=== PATIENT | female | born 1975 | race Caucasian/White ===

== ENCOUNTER 2018-02-10 20:10 | Emergency (ER) | payer OTHER ==
[2018-02-10 20:36] VITALS: BP 109/67
--- NOTE | 2018-02-10 21:32 | EDM.PDOC ---
ED HPI GENERAL MEDICAL PROBLEM - General Chief Complaint: Back Pain or Injury Stated Complaint: SHOULDER PAIN Time Seen by Provider: 02/10/18 21:14 Source of Information: Reports: Patient History Limitations: Reports: No Limitations - History of Present Illness INITIAL COMMENTS - FREE TEXT/NARRATIVE: The patient states that she developed nausea and emesis around 01:00 this morning. She has had chills without fever all day, and body aches today. She states that she was seen at the walk-in clinic earlier this afternoon. No chest were done, but she was diagnosed with a "stomach flu" and prescribe Zofran. She states that she took half a tablet of Zofran around 14:00 this afternoon, which helped with her nausea, but then she developed a stabbing pain felt between her scapulae around that time. No chest pain, and no shortness of breath. The pain was not modifiable. The pain comes and goes, lasting about 2 minutes, occurring about every 20 minutes. She is not feeling the pain at this time; the last time she felt it was just prior to arriving to the ED. The patient states that she has had similar back pain countless times ever since she was a child, whenever she gets sick. She states that she has not previously undergone a medical evaluation for it, specifically. The patient's PCP is Regi Hanson. Back Pain Score (Numeric/FACES): 5 - Related Data Allergies Allergy/AdvReac Type Severity Reaction Status Date / Time prochlorperazine Allergy Other Verified 02/10/18 20:31 [From Compazine] prochlorperazine edisylate Allergy Other Verified 02/10/18 20:31 [From Compazine] prochlorperazine maleate Allergy Other Verified 02/10/18 20:31 [From Compazine] Sulfa (Sulfonamide Allergy Rash Verified 02/10/18 20:31 Antibiotics) Home Meds: Home Meds buPROPion [Wellbutrin SR] 150 mg PO DAILY 02/06/16 [History] Sertraline [Zoloft] 12.5 mg PO DAILY 02/10/18 [History] Orphenadrine [Norflex] 1 tab PO Q12H PRN #14 tab.er 02/11/18 [Rx] Past Medical History HEENT History: Reports: Impaired Vision Gastrointestinal History: Reports: Gastritis 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: Psychiatric History: Reports: Anxiety, Depression - Past Surgical History HEENT Surgical History: Reports: Oral Surgery ([place] teeth extraction) GI Surgical History: Reports: Colonoscopy, EGD Female Surgical History: Reports: D&C (x 1) Social & Family History - Family History Family Medical History: Noncontributory Oncologic: Reports: Breast - Tobacco Use Smoking Status *Q: Former Smoker Month/Year Tobacco Last Used: Quit 1997 - Caffeine Use Caffeine Use: Reports: Coffee - Alcohol Use Alcohol Use History: No - Recreational Drug Use Recreational Drug Use: No - Living Situation & Occupation Living situation: Reports: , with Family (Daughter) 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 ED EXAM, UPPER BACK/NECK PAIN - Physical Exam Exam: See Below Exam Limited By: No Limitations General Appearance: Alert, WD/WN, No Apparent Distress Eye Exam: Bilateral Eye: Normal Inspection Ears Exam: Normal External Exam, Hearing Grossly Normal Nose Exam: Normal Inspection, No Blood Throat/Mouth Exam: Normal Inspection, Normal Lips, Normal Voice, No Airway Compromise Head Exam: Atraumatic, Normocephalic Neck Exam: Non-Tender, Full Range of Motion, Normal Alignment, Normal Inspection Cardiovascular/Respiratory: Regular Rate, Rhythm, No M/R/G, Normal Peripheral Pulses, No JVD, Normal Breath Sounds, No Respiratory Distress GI/Abdominal: Normal Bowel Sounds, Soft, Non-Tender, No Organomegaly, No Distention, No Abnormal Bruit, No Mass (Female) Exam: Deferred Rectal (Female) Exam: Deferred Back Exam: Normal Inspection, Full Range of Motion, NT Extremities: Normal Inspection, Normal Range of Motion, No Pedal Edema, Normal Capillary Refill Neurologic: No Motor/Sensory Deficits, Alert, Oriented x 3 Psychiatric: Normal Affect Skin Exam: Normal Color, Warm/Dry Course - Vital Signs Last Recorded V/S: Last Vital Signs Temp 36.8 C 02/10/18 20:34 Pulse 97 02/10/18 20:34 Resp 16 02/10/18 20:34 BP 109/67 02/10/18 20:34 Pulse Ox 98 02/10/18 20:34 - Orders/Labs/Meds Orders: Active Orders 24 hr Category Date Time Status Chest 2V [CR] Stat Exams 02/10/18 21:26 Taken Labs: Laboratory Tests 02/10/18 02/10/18 02/10/18 Range/Units 21:39 21:39 21:39 WBC 6.70 (3.98-10.04) K/mm3 RBC 4.05 (3.98-5.22) M/mm3 Hgb 12.8 (11.2-15.7) gm/L Hct 37.7 (34.1-44.9) % MCV 93.1 (79.4-94.8) fl MCH 31.6 (25.6-32.2) pg MCHC 34.0 (32.2-35.5) g/dl RDW Std Deviation 42.5 (36.4-46.3) fL Plt Count 217 (182-369) K/mm3 MPV 9.9 (9.4-12.3) fl Neutrophils % (Manual) 81 H (40-60) % Band Neutrophils % 0 (0-10) % Lymphocytes % (Manual) 16 L (20-40) % Atypical Lymphs % 0 % Monocytes % (Manual) 3 (2-10) % Eosinophils % (Manual) 0 L (0.7-5.8) % Basophils % (Manual) 0 L (0.1-1.2) Platelet Estimate Adequate RBC Morph Comment Normal PT 12.0 (8.0-13.0) SECONDS INR 1.12 APTT (22-36) SECONDS D-Dimer, Quantitative 0.35 (0.19-0.59) mg/L Sodium 134 L (136-145) mEq/L Potassium 3.3 L (3.5-5.1) mEq/L Chloride 99 (98-107) mEq/L Carbon Dioxide 26 (21-32) mEq/L Anion Gap 12.3 (5-15) BUN 9 (7-18) mg/dL Creatinine 0.8 (0.55-1.02) mg/dL Est Cr Clr Drug Dosing 75.78 mL/min Estimated GFR (MDRD) > 60 (>60) mL/min BUN/Creatinine Ratio 11.3 L (14-18) Glucose 146 H (74-106) mg/dL Calcium 8.1 L (8.5-10.1) mg/dL Total Bilirubin 0.3 (0.2-1.0) mg/dL AST 20 (15-37) U/L ALT 37 (14-59) U/L Alkaline Phosphatase 41 L (46-116) U/L Troponin I < 0.017 (0.00-0.056) ng/mL Total Protein 6.5 (6.4-8.2) g/dl Albumin 3.6 (3.4-5.0) g/dl Globulin 2.9 gm/dL Albumin/Globulin Ratio 1.2 (1-2) 02/10/18 Range/Units 21:39 WBC (3.98-10.04) K/mm3 RBC (3.98-5.22) M/mm3 Hgb (11.2-15.7) gm/L Hct (34.1-44.9) % MCV (79.4-94.8) fl MCH (25.6-32.2) pg MCHC (32.2-35.5) g/dl RDW Std Deviation (36.4-46.3) fL Plt Count (182-369) K/mm3 MPV (9.4-12.3) fl Neutrophils % (Manual) (40-60) % Band Neutrophils % (0-10) % Lymphocytes % (Manual) (20-40) % Atypical Lymphs % % Monocytes % (Manual) (2-10) % Eosinophils % (Manual) (0.7-5.8) % Basophils % (Manual) (0.1-1.2) Platelet Estimate RBC Morph Comment PT (8.0-13.0) SECONDS INR APTT 30 (22-36) SECONDS D-Dimer, Quantitative (0.19-0.59) mg/L Sodium (136-145) mEq/L Potassium (3.5-5.1) mEq/L Chloride (98-107) mEq/L Carbon Dioxide (21-32) mEq/L Anion Gap (5-15) BUN (7-18) mg/dL Creatinine (0.55-1.02) mg/dL Est Cr Clr Drug Dosing mL/min Estimated GFR (MDRD) (>60) mL/min BUN/Creatinine Ratio (14-18) Glucose (74-106) mg/dL Calcium (8.5-10.1) mg/dL Total Bilirubin (0.2-1.0) mg/dL AST (15-37) U/L ALT (14-59) U/L Alkaline Phosphatase (46-116) U/L Troponin I (0.00-0.056) ng/mL Total Protein (6.4-8.2) g/dl Albumin (3.4-5.0) g/dl Globulin gm/dL Albumin/Globulin Ratio (1-2) Meds: Medications Discontinued Medications Generic Name Dose Route Start Last Admin Trade Name Freq PRN Reason Stop Dose Admin Orphenadrine Citrate 100 mg 02/11/18 00:09 02/11/18 00:26 Norflex PO 02/11/18 00:10 100 mg ONETIME STA Administration - Re-Assessments/Exams Free Text/Narrative Re-Assessment/Exam: 02/10/18 22:22 Two-view chest radiograph appears to be grossly normal. Cardiac silhouette is within normal limits. No pulmonary vascular congestion. No pleural effusions. No focal infiltrate. No pneumothorax. Formal read per the Radiologist pending. 02/11/18 00:10 Test results discussed with the patient. Today's workup, with the exception of mild hypokalemia, is unremarkable. Causes of scapular pain, including a pulmonary embolus, LA, or infiltrate have been ruled out. Clinically, her symptoms are not consistent with a dissection, therefore this was not pursued, although with a dissection, one would expect an elevated D-dimer, which was not the case here. Clinically, I suspect that the patient is suffering from a muscle spasm, possibly related to anxiety. To that end, we'll start the patient on Norflex. Departure - Departure Time of Disposition: 00:11 Disposition: Home, Self-Care 01 Condition: Good Clinical Impression: Muscle spasm of back - Discharge Information Prescriptions: Orphenadrine [Norflex] 1 tab PO Q12H PRN #14 tab.er PRN Reason: Muscle Spasm Instructions: Muscle Cramps and Spasms, [id number] Referrals: Regi Hanson COUNTER CUTTER [Primary Care Provider] - Forms: ED Department Discharge Additional Instructions: You were seen in the emergency room for stabbing pain between your shoulder blades, on and off since this afternoon. Workup in the ER included blood work and a chest x-ray. Your entire workup was unremarkable. You do not have a blood clot in your lungs. You do not have a collapsed lung. You do not have pneumonia. You have not had a heart attack. Based on your history and physical examination, your pain is MOST LIKELY due to a muscle spasm. You have been started on the muscle relaxant Norflex. A prescription for this has been sent to the [facility]. Take one tablet every 12 hours, as prescribed. Your potassium was found to be slightly low. We recommend that you increase potassium in your diet with such foods as tomatoes, squash, sweet potatoes, potato skins, yogurt, and bananas. We recommend that you notify the office of your PCP, Regi Hanson, of your ER visit and Norflex prescription. If any other problems, please do not hesitate to return to the ER. - My Orders Last 24 Hours: My Active Orders 02/10/18 21:26 Chest 2V [CR] Stat - Assessment/Plan Last 24 Hours: My Active Orders 02/10/18 21:26 Chest 2V [CR] Stat
[2018-02-11] MEDS ORDERED: Orphenadrine 100 MG Tab.ER PO STA (00:09)
--- NOTE | 2018-02-11 09:32 | CR ---
Chest: Two views of the chest were obtained. Comparison: No prior chest x-ray. Heart size and mediastinum are normal. Lungs are clear. Bony structures are unremarkable. Impression: 1. Nothing acute is identified on two-view chest x-ray. Diagnostic code #1
== END 2018-02-11 00:27 | disposition home or self-care (01) ==
LOC: JD.ED 20:10
DX: M62.830 Muscle spasm of back (principal); Z88.8 Allergy status to other drugs, medicaments and biological substances; Z88.2 Allergy status to sulfonamides; Z79.899 Other long term (current) drug therapy; Z87.891 Personal history of nicotine dependence
CPT/HCPCS: 36415; 71046; 80053; 84484; 85025; 85379; 85610; 85730; 99284; A9270; 99283

== ENCOUNTER 2018-11-29 18:38 | Emergency (ER) | payer OTHER ==
[2018-11-29 18:57] VITALS: BP 123/68
--- NOTE | 2018-11-29 20:37 | EDM.PDOC ---
ED HPI GENERAL MEDICAL PROBLEM - General Chief Complaint: GLAZIER STRUCTURAL GLASS Problem Stated Complaint: IUD MAY HAVE MOVED/VAG BLEEDING Time Seen by Provider: 11/29/18 19:20 Source of Information: Reports: Patient History Limitations: Reports: No Limitations - History of Present Illness INITIAL COMMENTS - FREE TEXT/NARRATIVE: 43-year-old female presents for concerns over a dislodged IUD. Patient was seen by Dr. Solano on Sunday where she had what she describes as a skin tag removed from her cervix. 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 She reports since Sunday she's had worsening pelvic cramping and vaginal bleeding. She describes the pelvic cramping and bleeding as if she is on her menstrual cycle. Last menstrual cycle was November 08. She denies any fevers, chills, nausea or vomiting. She does have a Mirena IUD in place and checked the strings. She states she's not normally able to feel the strings; she was able to feel them today and feels that she can actually feel the IUD vagina. 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, Other Medication(s) Other Treatments SUPERVISOR COMPONENT ASSEMBLER: midol Lower Abdomen Pain Score (Numeric/FACES): 3 - Related Data Allergies Allergy/AdvReac Type Severity Reaction Status Date / Time prochlorperazine Allergy Other Verified 11/29/18 18:57 [From Compazine] prochlorperazine edisylate Allergy Other Verified 11/29/18 18:57 [From Compazine] prochlorperazine maleate Allergy Other Verified 11/29/18 18:57 [From Compazine] Sulfa (Sulfonamide Allergy Rash Verified 11/29/18 18:57 Antibiotics) Home Meds: Home Meds buPROPion [Wellbutrin SR] 150 mg PO BID 02/06/16 [History] Sertraline [Zoloft] 12.5 mg PO DAILY 02/10/18 [History] Prednisolone Acetate/Pf [Prednisolone Acet 1% Eye Drop] 2 - 4 applic EYEBOTH QID 11/29/18 [History] Past Medical History - Past Health History Medical/Surgical History: Denies Medical/Surgical History HEENT History: Reports: Impaired Vision, Other (See Below) Other HEENT History: conjunctivitis currently on prednisone eye gtts Gastrointestinal History: Reports: Gastritis, GERD Genitourinary History: Reports: UTI, Recurrent GLAZIER STRUCTURAL 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 History: Reports: Psychiatric History: Reports: Anxiety, Depression - Past Surgical History HEENT Surgical History: Reports: Oral Surgery GI Surgical History: Reports: Colonoscopy, EGD Female Surgical History: Reports: D&C, Other (See Below) Other Female Surgeries/Procedures: skin tag in cervix removed sunday 11/26 Social & Family History - Family History Family Medical History: Noncontributory Oncologic: Reports: Breast - Tobacco Use Smoking Status *Q: Never Smoker - Caffeine Use Caffeine Use: Reports: Coffee - Recreational Drug Use Recreational Drug Use: No - Living Situation & Occupation Living situation: Reports: , with Family (Daughter) 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) ED ROS GENERAL - Review of Systems Review Of Systems: See Below Constitutional: Denies: Fever, Chills GI/Abdominal: Denies: Nausea, Vomiting : Reports: Other (vaginal bleeding, pelvic cramping) ED EXAM, RENAL/ - Physical Exam Exam: See Below Exam Limited By: No Limitations General Appearance: Alert, WD/WN, No Apparent Distress Throat/Mouth: Normal Inspection, Normal Voice, No Airway Compromise Respiratory/Chest: No Respiratory Distress, Lungs Clear, Normal Breath Sounds Cardiovascular: Normal Peripheral Pulses, Regular Rate, Rhythm, No Murmur GI/Abdominal: Normal Bowel Sounds, Soft, Non-Tender (Female) Exam: Vaginal Bleeding, Other (foreign body, assumbed to be the IUD present in the cervix) Neurological: Alert, Oriented, Normal Cognition Psychiatric: Normal Affect, Normal Mood Skin Exam: Warm, Dry, Normal Color Course - Vital Signs Last Recorded V/S: Last Vital Signs Temp 98.7 F 11/29/18 18:53 Pulse 92 11/29/18 18:53 Resp 14 11/29/18 18:53 BP 123/68 11/29/18 18:53 Pulse Ox 100 11/29/18 18:53 - Orders/Labs/Meds Orders: Active Orders 24 hr Category Date Time Status Pelvic Exam, Set Up [RC] ASDIRECTED Care 11/29/18 19:26 Ordered Labs: Laboratory Tests 11/29/18 Range/Units 19:50 Urine HCG, Qual Negative (NEGATIVE) - Re-Assessments/Exams Free Text/Narrative Re-Assessment/Exam: 11/29/18 20:32 After initial pelvic exam, IUD found in the cervix. Contacted Dr. Wing, Ob silk conditioner, who recommended a urine HCG and removal with a ring forceps. She is available to come in and remove the IUD if the patient prefers or if we have any difficulty with the removal. I discussed with the patient and offered her to have OB come in remove the IUD. She was comfortable with us in the ER trying. IUD successfully removed with ringed forceps. No complications. Patient tolerated well. Will discharge home tonight. Discharge instructions as documented. Departure - Departure Time of Disposition: 20:36 Disposition: Home, Self-Care 01 Condition: Fair Clinical Impression: IUD complication - Discharge Information *PRESCRIPTION DRUG MONITORING PROGRAM REVIEWED*: No *COPY OF PRESCRIPTION DRUG MONITORING REPORT IN PATIENT LENA: No Referrals: Uvaldo Solano MD [Primary Care Provider] - Forms: ED Department Discharge Additional Instructions: [id number] Tylenol or Motrin as needed for discomfort over the weekend. Touch base with Dr. Solano's of next week to let them know that your IUD became dislodged. He may want to see you in follow-up especially if you continue to have pain and cramping. Please return to the ER for symptoms change or worsen. Expect some cramping and bleeding over the weekend but your symptoms should improve. If you experience worsening bleeding, lightheadedness, syncope or severe pain please return to the ER. - My Orders Last 24 Hours: My Active Orders 11/29/18 19:26 Pelvic Exam, Set Up [RC] ASDIRECTED - Assessment/Plan Last 24 Hours: My Active Orders 11/29/18 19:26 Pelvic Exam, Set Up [RC] ASDIRECTED
== END 2018-11-29 20:43 | disposition home or self-care (01) ==
LOC: JD.ED 18:38
DX: T83.89XA Other specified complication of genitourinary prosthetic devices, implants and grafts, initial encounter (principal); F32.9 Major depressive disorder, single episode, unspecified; F41.9 Anxiety disorder, unspecified; Z88.8 Allergy status to other drugs, medicaments and biological substances; Z79.899 Other long term (current) drug therapy
CPT/HCPCS: 81025; 99283

== ENCOUNTER 2019-12-25 08:41 | Emergency (ER) | payer OTHER, SELFPAY ==
[2019-12-25 08:52] VITALS: BP 105/66; PULSE 93
--- NOTE | 2019-12-25 09:16 | EDM.PDOC ---
<ShellyAnniaKelly - Last Filed: 12/25/19 09:10> ED HPI GENERAL MEDICAL PROBLEM - General Chief Complaint: Cardiovascular Problem Stated Complaint: RACING HEART RATE AND LT ARM NUMBNESS Time Seen by Provider: 12/25/19 09:07 Source of Information: Reports: Patient History Limitations: Reports: No Limitations - History of Present Illness INITIAL COMMENTS - FREE TEXT/NARRATIVE: Patient is a pleasant 44-year-old female with a history of anxiety and depression who comes in to the ED today for evaluation of a racing heart sensation and numbness in bilateral arms. She reports that last evening when she laid down to sleep she started feeling her heart race and it was keeping her up. She reports she took a half tablet of Ativan and was finally able to get some sleep. She denies any chest pain or pressure and shortness of breath. She does note that she has been having headaches for the past 3 days that have been steadily increasing in severity. Three days ago she saw her chiropractor for an adjustment, which she reports was a hard adjustment, and she really hasn't felt very good since. This is when the numbness in her arms started and has been progressing as well. She states she has a bulging disc at C6 and is not sure if the adjustment is causing her symptoms. She also reports that she drank an Americano coffee that had an extra shot of espresso at about 4pm yesterday, which is not part of her typical daily routine. Onset: Sudden Duration: Hour(s): Location: Reports: Chest (heart racing) Severity: Mild Associated Symptoms: Reports: No Other Symptoms - Related Data Allergies Allergy/AdvReac Type Severity Reaction Status Date / Time amoxicillin [From Augmentin] Allergy Rash Verified 12/25/19 08:52 celecoxib [From Celebrex] Allergy Other Verified 12/25/19 08:52 clavulanic acid Allergy Rash Verified 12/25/19 08:52 [From Augmentin] prochlorperazine Allergy Other Verified 11/29/18 18:57 [From Compazine] prochlorperazine edisylate Allergy Other Verified 11/29/18 18:57 [From Compazine] prochlorperazine maleate Allergy Other Verified 11/29/18 18:57 [From Compazine] Sulfa (Sulfonamide Allergy Rash Verified 11/29/18 18:57 Antibiotics) Home Meds: Home Meds buPROPion [Wellbutrin SR] 150 mg PO BID 02/06/16 [History] Sertraline [Zoloft] 12.5 mg PO DAILY 02/10/18 [History] Prednisolone Acetate/Pf [Prednisolone Acet 1% Eye Drop] 2 - 4 applic EYEBOTH QID 11/29/18 [History] LORazepam [Ativan] 0.5 mg PO Q6HR PRN 12/25/19 [History] Past Medical History - Past Health History Medical/Surgical History: Denies Medical/Surgical History HEENT History: Reports: Impaired Vision, Other (See Below) Other HEENT History: conjunctivitis currently on prednisone eye gtts Gastrointestinal History: Reports: Gastritis, GERD Genitourinary History: Reports: UTI, Recurrent 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: Reports: Musculoskeletal History: Reports: Neck Pain, Chronic Other Musculoskeletal History: buldging disc in C5-6 Psychiatric History: Reports: Anxiety, Depression - Past Surgical History HEENT Surgical History: Reports: Oral Surgery GI Surgical History: Reports: Colonoscopy, EGD Female Surgical History: Reports: D&C, Other (See Below) Other Female Surgeries/Procedures: skin tag in cervix removed sunday 11/26 Social & Family History - Family History Family Medical History: Noncontributory Oncologic: Reports: Breast - Tobacco Use Smoking Status *Q: Never Smoker Second Hand Smoke Exposure: No - Caffeine Use Caffeine Use: Reports: None - Recreational Drug Use Recreational Drug Use: No - Living Situation & Occupation Living situation: Reports: , with Family (Daughter) 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 Denies: Fever, Chills Respiratory: Reports: No Symptoms. Denies: Shortness of Breath, Cough Cardiovascular: Reports: Palpitations (heart racing). Denies: Chest Pain, Edema , Lightheadedness, Syncope GI/Abdominal: Reports: No Symptoms. Denies: Abdominal Pain, Diarrhea, Nausea, Vomiting Musculoskeletal: Reports: No Symptoms Skin: Reports: No Symptoms. Denies: Rash Neurological: Reports: Headache (progressively increasing for past 3 days), Numbness (radiates from neck down bilateral arms). Denies: Dizziness, Syncope, Weakness Psychiatric: Reports: No Symptoms Hematologic/Lymphatic: Reports: No Symptoms ED EXAM, GENERAL - Physical Exam Exam: See Below Exam Limited By: No Limitations General Appearance: Alert, WD/WN, No Apparent Distress Head: Atraumatic, Normocephalic Neck: Normal Inspection, Supple, Non-Tender, Full Range of Motion Respiratory/Chest: No Respiratory Distress, Lungs Clear, Normal Breath Sounds, Chest Non-Tender Cardiovascular: Normal Peripheral Pulses, Regular Rate, Rhythm, No Edema, No Murmur GI/Abdominal: Normal Bowel Sounds, Soft, Non-Tender, No Organomegaly, No Distention Back Exam: Normal Inspection, Full Range of Motion Extremities: Normal Inspection, Normal Range of Motion, Non-Tender, No Pedal Edema, Normal Capillary Refill Neurological: Alert, Oriented, Normal Cognition, No Motor/Sensory Deficits Psychiatric: Normal Affect, Normal Mood Skin Exam: Warm, Dry, Intact, No Rash Lymphatic: No Adenopathy Course - Vital Signs Last Recorded V/S: Last Vital Signs Temp 98.1 F 12/25/19 08:48 Pulse 93 12/25/19 08:48 Resp 13 12/25/19 08:48 BP 105/66 12/25/19 08:48 Pulse Ox 99 12/25/19 08:48 - Orders/Labs/Meds Orders: Active Orders 24 hr Category Date Time Status EKG Documentation Completion [RC] ASDIRECTED Care 12/25/19 09:34 Active EKG 12 Lead [EK] Stat Ther 12/25/19 09:34 Ordered Labs: Laboratory Tests 12/25/19 12/25/19 Range/Units 08:50 08:50 WBC 5.61 (3.98-10.04) K/mm3 RBC 4.34 (3.98-5.22) M/mm3 Hgb 13.4 (11.2-15.7) gm/dl Hct 41.4 (34.1-44.9) % MCV 95.4 H (79.4-94.8) fl MCH 30.9 (25.6-32.2) pg MCHC 32.4 (32.2-35.5) g/dl RDW Std Deviation 44.1 (36.4-46.3) fL Plt Count 304 D (182-369) K/mm3 MPV 10.7 (9.4-12.3) fl Neut % (Auto) 60.4 (34.0-71.1) % Lymph % (Auto) 26.4 (19.3-51.7) % Cassia % (Auto) 10.5 (4.7-12.5) % Eos % (Auto) 1.6 (0.7-5.8) Baso % (Auto) 1.1 (0.1-1.2) % Neut # (Auto) 3.39 (1.56-6.13) K/mm3 Lymph # (Auto) 1.48 (1.18-3.74) K/mm3 Cassia # (Auto) 0.59 H (0.24-0.36) K/mm3 Eos # (Auto) 0.09 (0.04-0.36) K/mm3 Baso # (Auto) 0.06 (0.01-0.08) K/mm3 Sodium 138 (136-145) mEq/L Potassium 3.8 (3.5-5.1) mEq/L Chloride 103 (98-107) mEq/L Carbon Dioxide 27 (21-32) mEq/L Anion Gap 11.8 (5-15) BUN 7 (7-18) mg/dL Creatinine 0.8 (0.55-1.02) mg/dL Est Cr Clr Drug Dosing 74.23 mL/min Estimated GFR (MDRD) > 60 (>60) mL/min BUN/Creatinine Ratio 8.8 L (14-18) Glucose 100 (74-106) mg/dL Calcium 8.9 (8.5-10.1) mg/dL Total Bilirubin 0.5 (0.2-1.0) mg/dL AST 14 L (15-37) U/L ALT 58 (14-59) U/L Alkaline Phosphatase 46 (46-116) U/L Total Protein 7.3 (6.4-8.2) g/dl Albumin 4.2 (3.4-5.0) g/dl Globulin 3.1 gm/dL Albumin/Globulin Ratio 1.4 (1-2) Departure - Departure Disposition: Home, Self-Care 01 Clinical Impression: Palpitations Instructions: Palpitations, [id number] Referrals: Ashley Lloyd PLUG WIRER [Primary Care Provider] - Forms: ED Department Discharge Additional Instructions: Your heart and lung exam today is normal, EKG is normal and labs looked good. Try avoid caffeine in the afternoon as best you can. Drink pllenty of water to maintain hydration. Follow-up clinic as needed, return to ED as needed. Sepsis Event Note - Evaluation Sepsis Screening Result: No Definite Risk - Focused Exam Vital Signs: Vital Signs Temp Pulse Resp BP Pulse Ox 12/25/19 08:48 98.1 F 93 13 105/66 99 Date Exam was Performed: 12/25/19 Time Exam was Performed: 09:10 - My Orders Last 24 Hours: My Active Orders 12/25/19 09:34 EKG Documentation Completion [RC] ASDIRECTED EKG 12 Lead [EK] Stat - Assessment/Plan Last 24 Hours: My Active Orders 12/25/19 09:34 EKG Documentation Completion [RC] ASDIRECTED EKG 12 Lead [EK] Stat <Franklin Berman - Last Filed: 12/25/19 10:09> ED EXAM, GENERAL - Physical Exam Skin Exam: Normal Color Course - Orders/Labs/Meds Labs: Laboratory Tests 12/25/19 12/25/19 Range/Units 08:50 08:50 WBC 5.61 (3.98-10.04) K/mm3 RBC 4.34 (3.98-5.22) M/mm3 Hgb 13.4 (11.2-15.7) gm/dl Hct 41.4 (34.1-44.9) % MCV 95.4 H (79.4-94.8) fl MCH 30.9 (25.6-32.2) pg MCHC 32.4 (32.2-35.5) g/dl RDW Std Deviation 44.1 (36.4-46.3) fL Plt Count 304 D (182-369) K/mm3 MPV 10.7 (9.4-12.3) fl Neut % (Auto) 60.4 (34.0-71.1) % Lymph % (Auto) 26.4 (19.3-51.7) % Cassia % (Auto) 10.5 (4.7-12.5) % Eos % (Auto) 1.6 (0.7-5.8) Baso % (Auto) 1.1 (0.1-1.2) % Neut # (Auto) 3.39 (1.56-6.13) K/mm3 Lymph # (Auto) 1.48 (1.18-3.74) K/mm3 Cassia # (Auto) 0.59 H (0.24-0.36) K/mm3 Eos # (Auto) 0.09 (0.04-0.36) K/mm3 Baso # (Auto) 0.06 (0.01-0.08) K/mm3 Sodium 138 (136-145) mEq/L Potassium 3.8 (3.5-5.1) mEq/L Chloride 103 (98-107) mEq/L Carbon Dioxide 27 (21-32) mEq/L Anion Gap 11.8 (5-15) BUN 7 (7-18) mg/dL Creatinine 0.8 (0.55-1.02) mg/dL Est Cr Clr Drug Dosing 74.23 mL/min Estimated GFR (MDRD) > 60 (>60) mL/min BUN/Creatinine Ratio 8.8 L (14-18) Glucose 100 (74-106) mg/dL Calcium 8.9 (8.5-10.1) mg/dL Total Bilirubin 0.5 (0.2-1.0) mg/dL AST 14 L (15-37) U/L ALT 58 (14-59) U/L Alkaline Phosphatase 46 (46-116) U/L Total Protein 7.3 (6.4-8.2) g/dl Albumin 4.2 (3.4-5.0) g/dl Globulin 3.1 gm/dL Albumin/Globulin Ratio 1.4 (1-2) - Re-Assessments/Exams Free Text/Narrative Re-Assessment/Exam: 12/25/19 09:31 Initial hx and exam has been done by Chasidy Chatman, I agree with hx and exam as documented. I have also interviewed and examined patient. EKG showed normal sinus rhythm, rate 91. Gradually did slow into the 80s while awaiting lab work CBC, CMP normal. Sitting comfortably at time of discharge. The extra afternoon caffeine exposure is what did her in and likely triggered the sequence of palpitations and then stress and anxiety on top of that. Discharge instructions as documented. Departure - Departure Time of Disposition: 10:03 Condition: Fair Sepsis Event Note - Focused Exam Date Exam was Performed: 12/25/19 Time Exam was Performed: 10:06
== END 2019-12-25 10:10 | disposition home or self-care (01) ==
LOC: JD.ED 08:41
DX: R00.2 Palpitations (principal); F41.9 Anxiety disorder, unspecified; F32.9 Major depressive disorder, single episode, unspecified; Z88.1 Allergy status to other antibiotic agents; Z88.8 Allergy status to other drugs, medicaments and biological substances; Z88.2 Allergy status to sulfonamides; Z79.899 Other long term (current) drug therapy
CPT/HCPCS: 36415; 80053; 85025; 93005; 93010; 99283; 99284-25

== ENCOUNTER 2020-02-08 11:21 | Emergency (ER) | payer OTHER ==
--- NOTE | 2020-02-08 12:18 | EDM.PDOC ---
ED HPI GENERAL MEDICAL PROBLEM - General Chief Complaint: Chest Pain Stated Complaint: CHEST PAIN Time Seen by Provider: 02/08/20 11:32 Source of Information: Reports: Patient, RN Notes Reviewed - History of Present Illness INITIAL COMMENTS - FREE TEXT/NARRATIVE: 44 year old female with onset of pleuritic chest pain that started about a week ago, has become worse the last several days. Pain is worse with deep inspiration ant. chest without radiation. No cough, fever or chills. She does not currently feel short of breath. No hx of CAD. Middle Chest Pain Score (Numeric/FACES): 3 - Related Data Allergies Allergy/AdvReac Type Severity Reaction Status Date / Time amoxicillin [From Augmentin] Allergy Rash Verified 12/25/19 08:52 celecoxib [From Celebrex] Allergy Other Verified 12/25/19 08:52 clavulanic acid Allergy Rash Verified 12/25/19 08:52 [From Augmentin] prochlorperazine Allergy Other Verified 11/29/18 18:57 [From Compazine] prochlorperazine edisylate Allergy Other Verified 11/29/18 18:57 [From Compazine] prochlorperazine maleate Allergy Other Verified 11/29/18 18:57 [From Compazine] Sulfa (Sulfonamide Allergy Rash Verified 11/29/18 18:57 Antibiotics) Home Meds: Home Meds buPROPion [Wellbutrin SR] 150 mg PO BID 02/06/16 [History] Sertraline [Zoloft] 12.5 mg PO DAILY 02/10/18 [History] LORazepam [Ativan] 0.5 mg PO Q6HR PRN 12/25/19 [History] Cetirizine [ZyrTEC] 10 mg PO DAILY 02/08/20 [History] Past Medical History - Past Health History Medical/Surgical History: Denies Medical/Surgical History HEENT History: Reports: Impaired Vision, Other (See Below) Other HEENT History: conjunctivitis currently on prednisone eye gtts Gastrointestinal History: Reports: Gastritis, GERD Genitourinary History: Reports: UTI, Recurrent 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: Musculoskeletal History: Reports: Neck Pain, Chronic Other Musculoskeletal History: buldging disc in C5-6 Psychiatric History: Reports: Anxiety, Depression - Past Surgical History HEENT Surgical History: Reports: Oral Surgery GI Surgical History: Reports: Colonoscopy, EGD Female Surgical History: Reports: D&C, Other (See Below) Other Female Surgeries/Procedures: skin tag in cervix removed sunday 11/26 Social & Family History - Family History Family Medical History: Noncontributory Oncologic: Reports: Breast - Tobacco Use Smoking Status *Q: Never Smoker - Caffeine Use Caffeine Use: Reports: Coffee, Soda - Recreational Drug Use Recreational Drug Use: No - Living Situation & Occupation Living situation: Reports: , with Family (Daughter) 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 ) Respiratory: Reports: Pleuritic Chest Pain. Denies: Shortness of Breath, Wheezing, Cough Cardiovascular: Reports: Chest Pain GI/Abdominal: Denies: Abdominal Pain, Nausea, Vomiting Musculoskeletal: Denies: Shoulder Pain, Arm Pain, Back Pain Skin: Reports: No Symptoms Neurological: Reports: No Symptoms ED EXAM, GENERAL - Physical Exam Exam: See Below General Appearance: Alert, No Apparent Distress Throat/Mouth: Normal Inspection Head: Atraumatic Neck: Supple Respiratory/Chest: No Respiratory Distress, Lungs Clear, Normal Breath Sounds, Other (There is tenderness both sternal borders) Cardiovascular: Regular Rate, Rhythm GI/Abdominal: Soft, Non-Tender Back Exam: No: CVA Tenderness (L), CVA Tenderness (R) Extremities: Normal Inspection, Normal Range of Motion. No: Leg Pain Neurological: Alert, Oriented, No Motor/Sensory Deficits Skin Exam: Warm, Dry, Normal Color EKG INTERPRETATION EKG Date: 02/08/20 Rhythm: NSR [place]: Normal P-Wave: Present QRS: Normal ST-T: Normal Course - Vital Signs Last Recorded V/S: Last Vital Signs Temp 98.4 F 02/08/20 11:30 Pulse 81 02/08/20 12:32 Resp 16 02/08/20 12:32 BP 100/59 L 02/08/20 12:32 Pulse Ox 97 02/08/20 12:32 - Orders/Labs/Meds Orders: Active Orders 24 hr Category Date Time Status EKG 12 Lead [EKG Documentation Completion] [RC] STAT Care 02/08/20 11:48 Active - Re-Assessments/Exams Free Text/Narrative Re-Assessment/Exam: 02/08/20 15:45 EKG nl, sats 100 % Departure - Departure Time of Disposition: 12:16 Disposition: Home, Self-Care 01 Condition: Fair Clinical Impression: Anterior chest wall pain Instructions: Chest Wall Pain, [id number] Referrals: PCP,Not In Area [Primary Care Provider] - Forms: ED Department Discharge Additional Instructions: advil or ibuprofen 600 mg up to 3 times daily with food for about 2 days and than back off to 400 mg 2 to 3 times daily. Alternate ice and heat as needed. Follow up clinic if not getting back to normal within 3 to 5 days as expected. Return to ED as needed. Sepsis Event Note - Evaluation Sepsis Screening Result: No Definite Risk - Focused Exam Vital Signs: Vital Signs Temp Pulse Resp BP Pulse Ox 02/08/20 12:32 81 16 100/59 L 97 02/08/20 11:30 98.4 F 87 20 109/69 100 Date Exam was Performed: 02/08/20 Time Exam was Performed: 15:45 - My Orders Last 24 Hours: My Active Orders 02/08/20 11:48 EKG 12 Lead [EKG Documentation Completion] [RC] STAT - Assessment/Plan Last 24 Hours: My Active Orders 02/08/20 11:48 EKG 12 Lead [EKG Documentation Completion] [RC] STAT
[2020-02-08 12:33] VITALS: BP 100/59; PULSE 81
== END 2020-02-08 12:27 | disposition home or self-care (01) ==
LOC: JD.ED 11:21
DX: R07.89 Other chest pain (principal); F41.9 Anxiety disorder, unspecified; F32.9 Major depressive disorder, single episode, unspecified; Z88.1 Allergy status to other antibiotic agents; Z88.8 Allergy status to other drugs, medicaments and biological substances; Z88.2 Allergy status to sulfonamides; Z79.899 Other long term (current) drug therapy
CPT/HCPCS: 93005; 93010; 99283; 99284-25

== ENCOUNTER 2024-06-27 19:54 | Emergency (ER) | payer BC ==
[2024-06-27] MEDS: Ketorolac 15 MG/ML SDV IVPUSH ONE (21:00)
[2024-06-27] MEDS: Sodium Chloride 0.9% 1,000 ML IV ONE (21:00)
[2024-06-27 21:05] LABS: BASOPHILS ABSOLUTE AUTO 0.1 K/mm3 (0.0-0.2); BASOPHILS PERCENT AUTO 0.7 % (0.0-1.0); EOSINOPHILS ABSOLUTE AUTO 0.1 K/mm3 (0.0-0.4); EOSINOPHILS PERCENT AUTO 0.7 % (0.0-6.0); HEMATOCRIT 41.3 % (37.0-47.0); HEMOGLOBIN 13.7 gm/dl (12.0-16.0); IMMATURE GRAN ABSOLUTE AUTO 0.02 K/mm3 (0.00-0.05); IMMATURE GRAN PERCENT AUTO 0.2 % (0.0-0.4); LYMPHOCYTES ABSOLUTE AUTO 2.6 K/mm3 (1.0-4.8); LYMPHOCYTES PERCENT AUTO 26.6 % (24.0-44.0); MEAN CORPUSCULAR HEMOGLOBIN 31.2 pg (28.0-32.0); MEAN CORPUSCULAR HGB CONC 33.2 g/dl (32.0-36.0); MEAN CORPUSCULAR VOLUME 94.1 fl (83.0-99.0); MEAN PLATELET VOLUME 9.9 fl (9.4-12.3); MONOCYTES ABSOLUTE AUTO 0.7 K/mm3 (0.0-0.8); NEUTROPHILS ABSOLUTE AUTO 6.3 K/mm3 (1.8-7.7); NEUTROPHILS PERCENT AUTO 64.8 % (41.0-71.0); PLATELET COUNT,PLT 327 K/mm3 (150-400); RED BLOOD CELL COUNT 4.39 M/mm3 (4.10-5.30); WHITE BLOOD CELL COUNT,WBC 9.66 K/mm3 (3.9-11.3)
[2024-06-27 21:06] LABS: APPEARANCE,URINE CLEAR (Clear); BILIRUBIN,URINE NEGATIVE (Negative); COLOR,URINE LIGHT YELLOW (Yellow); GLUCOSE,URINE NEGATIVE (Negative); KETONES,URINE NEGATIVE (Negative); LEUKOCYTE ESTERASE,URINE NEGATIVE (Negative); NITRITE,URINE NEGATIVE (Negative); OCCULT BLOOD,URINE TRACE-LYSED (Negative); PROTEIN,URINE NEGATIVE (Negative); UROBILINOGEN,URINE 0.2 (0.2-1.0)
[2024-06-27 21:16] LABS: BACTERIA,URINE RARE /hpf (FEW); MUCUS,URINE NOT SEEN /hpf (FEW); RBC,URINE 0-5 /hpf (0-5); SQUAMOUS EPITHELIAL CELLS,UR 0-5 /hpf (0-5); WBC,URINE 0-5 /hpf (0-5)
[2024-06-27 21:32] LABS: A/G RATIO 1.3 (1-2); ALBUMIN 4.4 g/dl (3.4-5.0); ANION GAP 14.3 (5-15); BILIRUBIN TOTAL 0.3 mg/dL (0.2-1.0); CREATININE 0.8 mg/dL (0.55-1.02); EST CRCL DRUG DOSING (CG) 76.54 mL/min; POTASSIUM,K 3.3 mEq/L (3.5-5.1); PROTEIN TOTAL,TP 7.7 g/dl (6.4-8.2)
[2024-06-27] MEDS: Iopamidol 612 MG/ML 100 ML Bottle IVPUSH ONE (21:42)
[2024-06-27] MEDS: Sodium Chloride 0.9% 10 ML Syringe FLUSH PRN (21:42)
[2024-06-28 00:18] VITALS: BP 125/85; PULSE 88
== END 2024-06-28 00:22 | disposition home or self-care (01) ==
LOC: JD.ED 19:54
DX: R10.31 Right lower quadrant pain (principal); R10.32 Left lower quadrant pain; K21.9 Gastro-esophageal reflux disease without esophagitis; Z79.899 Other long term (current) drug therapy; Z88.2 Allergy status to sulfonamides; Z88.8 Allergy status to other drugs, medicaments and biological substances; Z88.0 Allergy status to penicillin; Z88.1 Allergy status to other antibiotic agents
CPT/HCPCS: 36415; 74177; 80053; 81001; 83690; 84703; 85025; 96374; 99284; J1885; J3490; J7030; Q9967